=== PATIENT | female | born 1995 | race Caucasian/White ===

== ENCOUNTER → 2018-11-17 22:34 | Observation (INO) ==
--- NOTE | 2018-11-17 22:28 | OB/GYN Progress Note ---
Date of Encounter: 11/17/18 Time of Encounter: 22:25 - Assessment and Plan (1) 36 weeks gestation of Current Visit: Yes Status: Acute Reactive NST with audible movement Discharge home with labor precautions Follow up in office with routine care and PRN POC per consult with Dr Peña (2) NST (non-stress test) reactive Current Visit: Yes Status: Acute Subjective - Subjective Principal diagnosis: decreased movement Interval history: Ms Doyle is a at 36 weeks and 0 days that presents to labor and delivery with c/o contractions every 10 minutes and 4 movements in 1 hour. She states she attempted to lay on her side and drink something cold and sweet without success. She did have a BPP in the office today for an 12/11. She is scheduled on Saturday for a follow up . She denies any leaking of fluid, vaginal discharge, headaches, vision changes, and epigastric pain. She is seen by Dr Bland for her care. Antepartum ROS: contractions, no movement normal Objective - Vital Signs Vital Signs: Intake and Output 11/17/18 11/17/18 11/17/18 07:59 15:59 23:59 Other: Weight 79.4 kg Patient Weight 11/17/18 23:59 Weight 79.4 kg - Exam FHR: auscultation normal, category 1 FHR comments: NST baseline 140 with > 15 x 15 accels and moderate variability. Uterus palpated soft Abdomen: Present: normal appearance, soft, gravid Uterus: Present: normal. Absent: firm, tenderness Cervical dilation: 2 Cervix effacement: 80 station: +1
== END | disposition home or self-care (01) ==
LOC: 1NENULAB
PROVIDERS: ADMIT Advanced Practice Midwife; ATTEND Advanced Practice Midwife

== ENCOUNTER → 2018-11-23 22:35 | Observation (INO) ==
[2018-11-23 21:02] LABS: Bacteria,Urine Many per hpf (None-Few); Bilirubin,Urine Negative (Negative); Blood,Urine Negative (Negative); Clarity,Urine Cloudy (Clear); Color,Urine Yellow (Yellow); Glucose,Urine (UA) Normal (Normal); Hyaline Casts,Urine None Seen per lpf (None-Few); Ketones,Urine Negative (Negative); Leukocyte Esterase,Urine Moderate (Negative); Nitrite,Urine Negative (Negative); Protein,Urine 100 mg/dL (Neg-Trace); Specific Gravity,Urine 1.024 (1.010-1.025); Squamous Epithelial Cell,Urine Many per lpf (None-Few); Urobilinogen,Urine Normal (Normal); WBC,Urine 30-50 per hpf (0-3)
[2018-11-23 21:12] LABS: Amphetamine Screen,Urine Negative ng/mL (Cutoff=1000); Barbiturate Screen,Urine Negative ng/mL (Cutoff=200); Benzodiazepines Screen,Urine Negative ng/mL (Cutoff=200); Cannabinoid Screen,Urine Negative ng/mL (Cutoff = 50); Cocaine Screen,Urine Negative ng/mL (Cutoff= 300); Opiate Screen,Urine Negative ng/mL (Cutoff=300); Phencyclidine Screen,Urine Negative ng/mL (Cutoff=25)
[2018-11-23 21:16] LABS: RBC,Urine 0-3 per hpf (0-3)
--- NOTE | 2018-11-23 21:24 | OB/GYN Progress Note ---
Date of Encounter: 11/23/18 Time of Encounter: 21:21 - Assessment and Plan (1) Headache in Current Visit: Yes Status: Acute Will try fioricet for headache relief PIH labs pending Dr. Franklin aware of patient complaints and assessment Qualifiers: Trimester: third trimester Qualified Code(s): O26.893 - Other specified related conditions, third trimester; R51 - Headache (2) NST (non-stress test) reactive Current Visit: No Status: Acute FHR 135 bpm moderate variability +15x15 accels no decels noted. Cat. 1 tracing Subjective - Subjective Principal diagnosis: Decreased FM, Headache and cramping Interval history: Patient is a 22 y/o at 36w6d presents to labor and delivery with complaints of decreased movement since she woke up this morning. Patient has felt baby move since getting to labor and delivery. Patient also reports a headache that started yesterday and has had no relief with Tylenol. Patient reports the pain to be an 8/10 on from the top of her head to the crown. Patient denies visual disturbances or epigastric pain. She does report cramping with vaginal pressure. She denies LOF or VB. Patient reports she is a GDM on metformin 500mg po daily. She receives care with Dr. Ceja. Antepartum ROS: contractions, no loss of fluid, no vaginal bleeding Objective - Vital Signs Vital Signs: Intake and Output 11/23/18 11/23/18 11/23/18 07:59 15:59 23:59 Other: Weight 79.742 kg Patient Weight 11/23/18 23:59 Weight 79.742 kg - Exam FHR: auscultation normal, category 1 FHR comments: FHR baseline 135 bpm moderate variability +15x15 accels no decels noted. Irregular contractions Cat. 1 tracing. Auscultation: bilateral: normal Abdomen: Present: normal appearance, soft, gravid Uterus: Present: normal Cervical dilation: 2 Cervix effacement: 80 station: -1 Comments: DTRs 2+ no clonus, 1+ edema bilateral lower extremities. - Labs Labs: Abnormal lab results Urine Clarity Cloudy (Clear) A 11/23/18 20:37 Urine Protein 100 mg/dL (Neg-Trace) H 11/23/18 20:37 Ur Leukocyte Esterase Moderate (Negative) H 11/23/18 20:37 Urine Microscopic WBC 30-50 per hpf (0-3) H 11/23/18 20:37 Ur Squamous Epith Cells Many per lpf (None-Few) H 11/23/18 20:37 Urine Bacteria Many per hpf (None-Few) H 11/23/18 20:37 Ur Culture Indicated? YES (NO) A 11/23/18 20:37
[2018-11-23 21:34] LABS: Basophils % 0.1 %; Eosinophils # 0.1 K/mcL (0.0-0.6); Eosinophils % 1.2 %; Hematocrit 31.3 % (35.3-44.9); Hemoglobin 10.2 g/dL (11.5-15.4); Immature Granulocytes % 0.5 % (0-4); Lymphocytes # 1.9 K/mcL (0.6-4.6); Lymphocytes % 21.2 %; Mean Corpuscular HGB Conc 32.6 g/dL (31.6-35.5); Mean Corpuscular Hemoglobin 29.1 pg (28.0-33.3); Mean Corpuscular Volume 89.4 fL (83.0-100.0); Mean Platelet Volume 10.7 fL (9.4-12.4); Monocytes # 0.5 K/mcL (0.0-1.3); Monocytes % 5.9 %; Neutrophils # 6.5 K/mcL (1.6-8.9); Platelet Count 170 K/mcL (140-400); Red Cell Distribution Width 13.7 % (11.5-14.5); Segmented Neutrophils % 71.1 %; White Blood Count 9.2 K/mcL (4.3-11.1)
[2018-11-23 21:46] LABS: Protein/Creatinine Ratio,Urine 0.58 mg/mg (0.00-0.20)
[2018-11-23 21:53] LABS: Alanine Aminotransferase 25 Units/L (7-52); Aspartate Amino Transferase 41 Units/L (13-39); BUN/Creatinine Ratio 22 (6-26); Blood Urea Nitrogen 14 mg/dL (6-20); Lactate Dehydrogenase 182 Units/L (140-271); Uric Acid 5.7 mg/dL (2.3-7.6); eGFR For African Americans > 60 (> 60); eGFR For Non-African Americans > 60 (> 60)
--- NOTE | 2018-11-23 22:32 | Event Note ---
Date of Encounter: 11/23/18 Time of Encounter: 22:31 Discussed BPs, labs and assessment with Dr. Franklin. Will discharge patient home. Patient to follow up with Dr. Ceja as scheduled.
[~2018-11-23 22:35] MED LIST: Acetaminophen/Butalbital/CaffeineTABLET PO STA
== END | disposition home or self-care (01) ==
LOC: 1NENULAB
PROVIDERS: ADMIT Advanced Practice Midwife; ATTEND Advanced Practice Midwife

== ENCOUNTER → 2018-11-30 06:26 | Observation (INO) ==
--- NOTE | 2018-11-29 22:47 | OB/GYN Progress Note ---
Date of Encounter: 11/29/18 Time of Encounter: 22:43 - Assessment and Plan (1) 37 weeks gestation of Current Visit: Yes Status: Acute NST reactive Will monitor until morning for changes in contraction pattern and to repeat cervical exam. GBS negative DIscharge home in morning vs admit for ruptured membranes POC per consult with Dr Franklin. (2) Vaginal discharge during in third trimester Current Visit: Yes Status: Acute (3) NST (non-stress test) reactive Current Visit: Yes Status: Acute Subjective - Subjective Principal diagnosis: Leaking fluid Interval history: Ms Doyle is a 22 year old at 37 weeks and 5 days that presents to triage with c/o leaking clear fluid throughout the day without pain. She states she began having cramping about 2 hours ago. She denies intercourse or submerging in water in the past 48 hours. She states positive movement. She denies headaches, vision changes, epigastric pain, and vaginal bleeding. She is seen by Dr Bland for care. She does have GDM and is taking metformin 500mg BID. Antepartum ROS: loss of fluid, movement normal Objective - Vital Signs Vital Signs: Intake and Output 11/29/18 11/29/18 11/29/18 07:59 15:59 23:59 Other: Weight 81 kg Patient Weight 11/29/18 23:59 Weight 81 kg - Exam FHR: auscultation normal, category 1 FHR comments: Cat 1 tracing Baseline 135 moderate variability with 15 x 15 accels and no decels Contractions are irregular; palpate mild Auscultation: bilateral: normal Abdomen: Present: normal appearance, soft, gravid. Absent: tenderness Uterus: Present: normal. Absent: firm, tenderness Cervical dilation: 4 Cervix effacement: 80 station: -1 Comments: SSE - pooling positive, blood tinge noted to fluid in posterior fornix SVE - membranes palpable on presenting part; palpates vertex and well applied to cervix Fern negative nitrazine negative on perineum; Not done on pooling fluid due to blood tinge.
[~2018-11-30 06:26] MED LIST changes: +Acetaminophen 325 MG TABLET PO ONE; -Acetaminophen/Butalbital/CaffeineTABLET PO STA
== END | disposition home or self-care (01) ==
LOC: 1NENULAB
PROVIDERS: ADMIT Advanced Practice Midwife; ATTEND Advanced Practice Midwife

== ENCOUNTER 2018-11-30 12:56 | Inpatient (IN) ==
--- NOTE | 2018-11-30 12:47 | OB/GYN History & Physical ---
Date of Encounter: 11/30/18 Time of Encounter: 12:39 Assessment and Plan (1) SROM (spontaneous rupture of membranes) Current visit: Yes Status: Acute Admit to labor and delivery Nubain and epidural as desired Cytotec 50 g by mouth then will transition to Pitocin Frequent repositioning Anticipate (2) White classification A2 gestational diabetes mellitus (GDM) Current visit: Yes Status: Acute (3) 37 weeks gestation of Current visit: Yes Status: Acute History of Present Illness Chief complaint: spotting and leaking of fluid HPI: Ms. Doyle is a 22 year old female 37+5 weeks gestation cents to triage with complaints of spotting and leaking of fluid. Patient was in triage last night for leaking of fluid, sterile speculum exam showed no fluid, went home and soaked a. Pad came back. Sterile speculum exam shows clear fluid, ferning positive. Reports good movement care with Dr. Bland course complicated with A2 gestational diabetes on metformin 500 twice a day. Grade 3 placenta noted on last ultrasound. Estimated weight 6 lbs. 13 oz. Labs: A+, rubella and varicella immune, GBS negative, all other serologies negative Past Med Surg Social Fam HX - Past Medical History Medical history: no medical history Additional medical history: [place] Psychiatric history: no psych history - Past Surgical History Additional surgical history: T&A - Social History Smoking Status: Never smoker Smokeless Tobacco Status: No Alcohol use: none Drug use: none - Family History Mother Living Status: Still Living Hx Family Cardiac Disorders: No Hx Family Respiratory Disorders: No Hx Family Cancer: No Hx Family GI Disorders: No Hx Family Endocrine Disorder: Yes (dm) Hx Family Neuromuscular Disorders: No Hx Family Neurologic Disorders: No Hx Family HEENT Disorders: No Hx Family Autoimmune Disorders: No Obstetrical History - Pregnancies : 1 Para: 0 Term: 0 : 0 Ab's: 0 Livin Medications and Allergies Ferrous Sulfate [Iron] 1 tab PO BID 11/23/18 [History] Vit #108/Iron/FA [ One Tablet] 1 tab PO DAILY 11/23/18 [History] metFORMIN [Glucophage] 1 tab PO BID 11/23/18 [History] Allergy/AdvReac Type Severity Reaction Status Date / Time No Known Allergies Allergy Verified 11/23/18 20:28 Exam - Constitutional Constitutional: well developed, well nourished, no acute distress, average body habitus - Neck Neck exam: full ROM - Lungs Respiratory exam: CTAB - Cardiovascular Cardiovascular exam: RRR - Abdomen Abdomen: Present: gravid, non tender - Extremities Extremities exam: normal capillary refill, normal inspection - Cervix Dilation: 4 Effacement: 80 Station: -2 Results All other labs normal.
[~2018-11-30 12:56] MED LIST changes: +*HR* Nalbuphine 10 MG/ML AMPUL IVP PRN; -Acetaminophen 325 MG TABLET PO ONE; +Famotidine 20 MG/2 ML VIAL IVP PRN; +Lidocaine 1% 20 ML MDV INFILT PRN; +Metoclopramide 10 MG/2 ML VIAL IVP PRN; +Naloxone 0.4 MG/ML INJ IVP PRN; +Ondansetron 4 MG/2 ML VIAL IVP PRN; +miSOPROStol 25 MCG TABLET PO PRN
[2018-11-30 13:40] LABS: Basophils % 0.3 %; Eosinophils # 0.1 K/mcL (0.0-0.6); Eosinophils % 1.2 %; Hematocrit 31.8 % (35.3-44.9); Hemoglobin 10.6 g/dL (11.5-15.4); Immature Granulocytes % 0.6 % (0-4); Lymphocytes # 1.8 K/mcL (0.6-4.6); Lymphocytes % 18.3 %; Mean Corpuscular HGB Conc 33.3 g/dL (31.6-35.5); Mean Corpuscular Volume 87.1 fL (83.0-100.0); Mean Platelet Volume 10.5 fL (9.4-12.4); Monocytes # 0.6 K/mcL (0.0-1.3); Neutrophils # 7.2 K/mcL (1.6-8.9); Platelet Count 177 K/mcL (140-400); Red Blood Count 3.65 M/mcL (3.82-4.97); Segmented Neutrophils % 73.6 %; White Blood Count 9.8 K/mcL (4.3-11.1)
[2018-11-30] MEDS: Ringers Solution, Lactated 1,000 ML IVC SCH ×2 (16:17→17:15)
[2018-11-30] MEDS ORDERED: Epidural Premix (fent/bupiv) 110 ML EP ONE (16:39)
[2018-11-30] MEDS ORDERED: *HR* FentaNYL (PF) 100 MCG/2 ML VIAL ONE (16:40)
[2018-11-30] MEDS ORDERED: Ropivacaine/PF 0.2% 20 ML VIAL ONE (16:40)
--- NOTE | 2018-11-30 17:21 | Anesthesia Evaluation PreOp ---
Date of Encounter: 11/30/18 Time of Encounter: 16:40 - Past History Cardiac History: Denies any Significant Hx Pulmonary History: Denies Any Significant HX MAILING JOGGER History: Denies Any Significant HX Other Medical History: Diabetes Type II (gestational) Anesthesia History: No Prior Anesthetic Complications, Past Anesthesia : Yes (, 37.6 weeks) Alcohol Use: none Drug use: none Medications and Allergies Ferrous Sulfate [Iron] 1 tab PO BID 11/23/18 [History] Vit #108/Iron/FA [ One Tablet] 1 tab PO DAILY 11/23/18 [History] metFORMIN [Glucophage] 1 tab PO BID 11/23/18 [History] Allergy/AdvReac Type Severity Reaction Status Date / Time No Known Allergies Allergy Verified 11/23/18 20:28 - Meds/Allergy Pre-op Review Medications Reviewed: Yes Allergies Reviewed: Yes Beta Blockers on Current Med List: No Anesthesia Results - Labs 11/30/18 13:20 Anesthesia Exam O2 Sat Height 1.68 m Weight 81 kg Height: 66 Weight: 81 - HEENT Pupil (Motor): Pupils equal Mallampati: II Teeth: Normal Oral Opening: Greater than 3 - MAILING JOGGER LOC: Oriented MAILING JOGGER Motor: Normal RUE, Normal LUE, Normal RLE, Normal LLE, Normal Face MAILING JOGGER Sensory: Normal: RUE, LUE, RLE, LLE, Face - Cardiac Rhythm: Regular Murmur: None JVD: No Carotid Bruit: No - Pulmonary Breath Sounds: bilateral Clear Respiratory Effort: Symmetrical Anesthesia Assess/Plan ASA Score: 2 Level of consciousness: Cooperative Anesthetic Plan: Epidural
--- NOTE | 2018-11-30 17:24 | Anesthesia Procedures ---
Date of Encounter: 11/30/18 Time of Encounter: 16:40 (procedure end time 1723) Procedures: Anesthesia - Epidural/Spinal Patient ID/Chart reviewed: Yes Patient examined: Yes OB Eval: Gestational age: 37.6 OB Eval: : 1 OB Eval: Hx Para: 0 OB Eval: Dilated at (cm): 4 OB Eval: Contractions: Non-stressed pattern Consent Obtained: Yes Supplemental Oxygen: None/Room Air Site Prep: Aseptic Technique Patient position: upright Local Anesthetic: Lidocaine 1% Amount of Local Anesthetic used: 3 Touhy Needle Gauge: 18 Touhy Needle Depth (cm): 6 Catheter Depth at Skin (cm): 12 Test Dose (1.5% Lido + Epi): Volume given (mls): 3 Test Dose Result: Negative Loading Dose: Fentanyl (mcg): 100 Loading Dose: Other: 6ml 0.2% ropivicaine Loading Dose Administered: Thru Touhy Needle Infusion Med: 0.125% Bupivacaine w/ 2 mcg/ml Fentanyl Infusion Rate (mls/hr): [address]: Tegaderm Interspace Used: L4-L5 Loss of Resistance (RAMIN): Yes Blood: No CSF: No Paresthesia: No Procedure: Strict asepsis, one attempt without any redirections. Good RAMIN, no parasthesias, no heme, no CSF. See nursing notes for VS
[2018-11-30] MEDS ORDERED: Epidural Premix (fent/bupiv) 110 ML EP SCH (17:30)
--- NOTE | 2018-11-30 18:45 | OB Labor Progress Note ---
Date of Encounter: 11/30/18 Time of Encounter: 18:42 Labor Progress Note - Subjective Subjective: comfortable wiht epidural - Cervix Cervix: 10 - Heart Tones Heart Tones: 115/minimal/+accels/-decels - [place]: 1-3 - Plan Physician notified: No Plan: Continue current mnagement position with peanut ball start pushing when feels pressure
[2018-11-30] MEDS ORDERED: Oxytocin 20 units/ LR 1000 mL 20 UNIT/1,000 ML BAG IVC ONE (22:14)
--- NOTE | 2018-12-01 00:16 | OB/GYN Procedure Note ---
Delivery - Delivery Date: 12/01/18 Provider: Ree Michel Delivery induction: none Delivery augmentation: cytotec Delivery monitor: external FHT, external uterine Anesthesia: epidural Quantitated Blood Loss: 500 - (s) Infant A Infant Delivery Date: 11/30/18 Infant Delivery Time: 23:48 Presentation: vertex Position: OA Route of delivery: Gender: Male Viability: Viable at 1 minute: 8 at 5 mins: 9 Shoulder Dystocia: not encountered Specimens collected: cord blood Placenta: spontaneous Cord: 3 umbilical vessels - Repair Episiotomy: none Laceration Description: Perineal - 2nd Degree, Labial (left labial tear, right labial hematoma) - Complications Delivery complications: none Delivery comments: Spontaneous rupture membranes, augmentation with Cytotec. Progressed to complete. Maternal bearing down efforts to of liveborn male. Vertex delivered OA, shoulders and body easily followed. No nuchal cord or shoulder dystocia encountered. Vigorous infant placed on maternal abdomen for drying and stimulation. APGARS 8/9 . Placenta delivered spontaneously ([place]) complete and intact upon inspection. Fundus massaged until firm and Pitocin started per policy. Second degree perineal laceration repaired with 3-0 Monocryl. First degree lower perineal laceration left hemostatic and unrepaired. Left labial aspiration left hemostatic and unrepaired. Small hematoma noted to inner right labia. EBL 500 - Disposition Mom disposition: stable in LDR disposition: stable in LDR
[2018-12-01] MEDS ORDERED: Oxytocin 20 units/ LR 1000 mL 20 UNIT/1,000 ML BAG IVC ONE (01:25)
[2018-12-01] MEDS ORDERED: Benzocaine/Menthol 56 GM AEROSOL SPRAY TP PRN (02:59)
[2018-12-01] MEDS ORDERED: Lanolin 7 G OINT...G. TP PRN (02:59)
[2018-12-01] MEDS ORDERED: Acetaminophen 325 MG TABLET PO PRN (02:59)
[2018-12-01] MEDS ORDERED: Oxytocin 20 units/ LR 1000 mL 20 UNIT/1,000 ML BAG IVC SCH (02:59)
[2018-12-01 05:45] LABS: Basophils % 0.1 %; Eosinophils % 0.1 %; Hematocrit 29.4 % (35.3-44.9); Hemoglobin 9.6 g/dL (11.5-15.4); Immature Granulocytes % 0.9 % (0-4); Lymphocytes # 1.9 K/mcL (0.6-4.6); Lymphocytes % 12.4 %; Mean Corpuscular HGB Conc 32.7 g/dL (31.6-35.5); Mean Corpuscular Hemoglobin 28.7 pg (28.0-33.3); Mean Corpuscular Volume 87.8 fL (83.0-100.0); Mean Platelet Volume 11.2 fL (9.4-12.4); Monocytes % 5.6 %; Neutrophils # 12.2 K/mcL (1.6-8.9); Platelet Count 164 K/mcL (140-400); Red Blood Count 3.35 M/mcL (3.82-4.97); Red Cell Distribution Width 14.1 % (11.5-14.5); Segmented Neutrophils % 80.9 %
[2018-12-01 05:47] LABS: Monocytes # 0.9 K/mcL (0.0-1.3); White Blood Count 15.1 K/mcL (4.3-11.1)
[2018-12-01] MEDS: Ibuprofen 600 MG TABLET PO PRN ×2 (07:57→20:46)
[2018-12-01] MEDS ORDERED: Prenatal Vit/FA 1 EACH TABLET PO SCH (09:00)
--- NOTE | 2018-12-01 12:35 | Discharge Summary ---
Date of Encounter: 12/01/18 Time of Encounter: 12:32 - Discharge Diagnosis (1) Vaginal delivery Priority: Primary Status: Acute Comments: Patient meeting day one milestones Pain well controlled Voiding without difficulty Lochia moderate No bowel movement yet Anticipate discharge after midnight (2) Breast feeding status of mother Priority: Secondary Status: Acute Comments: Support as needed. Patient states she has a breast pump at home (3) Hematoma of labia majora Priority: Secondary Status: Acute Comments: Unchanged from previous assessment, ice packs and NSAIDs as needed to limit discomfort. (4) Second degree perineal laceration Priority: Secondary Status: Acute Comments: Motrin, dermaplast, and ice packs as needed for discomfort. (5) Acute blood loss anemia Priority: Secondary Status: Acute Comments: Continue daily iron at discharge. - Discharge Medications Prescriptions: New Ferrous Sulfate 325 mg PO DAILY #30 tablet Acetaminophen [Tylenol] 650 mg PO Q6HR PRN tablet PRN Reason: Mild Pain Ibuprofen [Motrin] 600 mg PO Q6HR PRN #60 tablet PRN Reason: Cramping Benzocaine/Menthol [place] [Dermoplast [place]] 1 appl TP QID PRN aerosol PRN Reason: See Comments Docusate [Colace] 100 mg PO BID capsule Lanolin [Lansinoh] 1 appl TP QID PRN oint...g. PRN Reason: Continued Vit #108/Iron/FA [ One Tablet] 1 tab PO DAILY Discontinued Ferrous Sulfate [Iron] 1 tab PO BID metFORMIN [Glucophage] 1 tab PO BID Home Medications: Vit #108/Iron/FA [ One Tablet] 1 tab PO DAILY 11/23/18 [History] Acetaminophen [Tylenol] 650 mg PO Q6HR PRN tablet 12/01/18 [Rx] Benzocaine/Menthol [place] [Dermoplast [place]] 1 appl TP QID PRN aerosol 12/01/18 [Rx] Docusate [Colace] 100 mg PO BID capsule 12/01/18 [Rx] Ferrous Sulfate 325 mg PO DAILY #30 tablet 12/01/18 [Rx] Ibuprofen [Motrin] 600 mg PO Q6HR PRN #60 tablet 12/01/18 [Rx] Lanolin [Lansinoh] 1 appl TP QID PRN oint...g. 12/01/18 [Rx] Allergies/Adverse Reactions: Allergy/AdvReac Type Severity Reaction Status Date / Time No Known Allergies Allergy Verified 11/23/18 20:28 Data Procedures and tests throughout hospitalization: Laboratory Tests 11/30/18 12/01/18 13:20 05:14 WBC 9.8 15.1 H D RBC 3.65 L 3.35 L Hgb 10.6 L 9.6 L Hct 31.8 L 29.4 L MCV 87.1 87.8 MCH 29.0 28.7 MCHC 33.3 32.7 RDW 14.0 14.1 Plt Count 177 164 MPV 10.5 11.2 Immature Gran % 0.6 0.9 Seg Neutrophils % 73.6 80.9 Lymphocytes % 18.3 12.4 Monocytes % 6.0 5.6 Eosinophils % 1.2 0.1 Basophils % 0.3 0.1 Neutrophils # 7.2 12.2 H Lymphocytes # 1.8 1.9 Monocytes # 0.6 0.9 Eosinophils # 0.1 0.0 Basophils # 0.0 0.0 Labs on day of discharge: Labs from last 24 hours 12/01/18 11/30/18 05:14 13:20 WBC 15.1 H D 9.8 RBC 3.35 L 3.65 L Hgb 9.6 L 10.6 L Hct 29.4 L 31.8 L MCV 87.8 87.1 MCH 28.7 29.0 MCHC 32.7 33.3 RDW 14.1 14.0 Plt Count 164 177 MPV 11.2 10.5 Immature Gran % 0.9 0.6 Seg Neutrophils % 80.9 73.6 Lymphocytes % 12.4 18.3 Monocytes % 5.6 6.0 Eosinophils % 0.1 1.2 Basophils % 0.1 0.3 Neutrophils # 12.2 H 7.2 Lymphocytes # 1.9 1.8 Monocytes # 0.9 0.6 Eosinophils # 0.0 0.1 Basophils # 0.0 0.0 Date of admission: 11/30/18 12:57 Consults: 12/01/18 02:59 Consult to [facility]unch [facility] Hand [CONS] Routine Comment: Vaginal delivery, consult needed Discharging clinician: Ivelisse Jones Anticipated date of discharge: 12/01/18 - Patient Status Disposition: Home, Self-Care Condition: Good Functional capacity at discharge: independent ambulation Overall status at discharge: patient is progressing back to baseline - Discharge Instructions - Diet and Activity Activity: resume usual activities as tolerated Diet: regular diet Hospital Course Reason for admission: active labor Delivery: Episiotomy: none Laceration: 2nd degree, other (Labial Laceration) Other procedures: none complications: hematoma, perineal laceration Discharge diagnosis: IUP at term delivered [place] baby: male Hospital course: - Delivery Date: 12/01/18 Provider: Ree Michel Delivery induction: none Delivery augmentation: cytotec Delivery monitor: external FHT, external uterine Anesthesia: epidural Quantitated Blood Loss: 500 - (s) Infant A Delivery Date: 11/30/18 Infant Delivery Time: 23:48 Presentation: vertex Position: OA Route of delivery: Gender: Male Viability: Viable at 1 minute: 8 at 5 mins: 9 Shoulder Dystocia: not encountered Specimens collected: cord blood Placenta: spontaneous Cord: 3 umbilical vessels - Repair Episiotomy: none Laceration Description: Perineal - 2nd Degree, Labial (left labial tear, right labial hematoma) - Complications Delivery complications: none Delivery comments: Spontaneous rupture membranes, augmentation with Cytotec. Progressed to complete. Maternal bearing down efforts to of liveborn male. Vertex delivered OA, shoulders and body easily followed. No nuchal cord or shoulder dystocia encountered. Vigorous infant placed on maternal abdomen for drying and stimulation. APGARS 8/9 . Placenta delivered spontaneously ([place]) complete and intact upon inspection. Fundus massaged until firm and Pitocin started per policy. Second degree perineal laceration repaired with 3-0 Monocryl. First degree lower perineal laceration left hemostatic and unrepaired. Left labial aspiration left hemostatic and unrepaired. Small hematoma noted to inner right labia. EBL 500 - Disposition Mom disposition: stable in LDR [place] disposition: stable in LDR Time Attestation: Total time spent providing and/or coordinating discharge services: Time Spent: Less than 30 minutes Exam - Constitutional Vitals: Temp Pulse Resp BP Pulse Ox 97.9 F 70 16 131/85 98 12/01/18 08:43 12/01/18 08:43 12/01/18 08:43 12/01/18 08:43 12/01/18 05:27 General appearance IM: A&O X 3, no acute distress - Respiratory Respiratory exam: Present: CTAB. Absent: respiratory distress - Cardiovascular Cardiovascular exam IM: Present: RRR, +S1, +S2. Absent: irregular rhythm - GI/Abdominal GI/Abdominal exam IM: hypoactive bowel sounds - Rectal Rectal exam: deferred - External exam: normal external exam Uterine Tone: Firm Uterus Position: At Umbilicus, Right of Midline - Extremities Exam Extremities exam IM: Present: full ROM, normal capillary refill, normal in spection, radial pulses palpable and symmetrical. Absent: calf tenderness - Neurological Exam Neurological exam: alert, oriented X3
[2018-12-01 16:28] VITALS: BP 129/83
== END 2018-12-01 20:55 | disposition home or self-care (01) | DRG 806 ==
LOC: 1NENULAB → 1NENUOBS 12-01 02:58
PROVIDERS: ADMIT Obstetrics & Gynecology; ATTEND Obstetrics & Gynecology

== ENCOUNTER 2020-06-28 06:43 | Observation (INO) ==
[2020-06-28] MEDS ORDERED: Ondansetron 4 MG/2 ML VIAL IVP ONE ×2 (07:07→08:24)
[2020-06-28] MEDS ORDERED: 0.9 % Sodium Chloride 1,000 ML IVC ONE ×3 (07:07→10:22)
[2020-06-28 07:30] LABS: Bacteria,Urine Few per hpf (None-Few); Bilirubin,Urine Negative (Negative); Blood,Urine Trace (Negative); Clarity,Urine Turbid (Clear); Color,Urine Yellow (Yellow); Glucose,Urine (UA) Normal (Normal); Hyaline Casts,Urine Moderate per lpf (None Seen); Ketones,Urine Negative (Negative); Leukocyte Esterase,Urine Moderate (Negative); Mucus,Urine Few per lpf (None-Few); Nitrite,Urine Negative (Negative); Protein,Urine 70 mg/dL (Neg-Trace); Specific Gravity,Urine > 1.030 (1.010-1.025); Squamous Epithelial Cell,Urine Few per hpf (None-Few); Urobilinogen,Urine Normal (Normal)
[2020-06-28 07:42] LABS: BUN/Creatinine Ratio 26 (6-26); Blood Urea Nitrogen 14 mg/dL (6-20); Calcium 9.1 mg/dL (8.6-10.3); Carbon Dioxide 23 mEq/L (23-29); Chloride 103 mEq/L (98-107); Glucose 119 mg/dL (70-105); Osmolality,Calculated 280 (280-300); Potassium 3.5 mEq/L (3.5-5.1); Sodium 134 mEq/L (136-145); eGFR For African Americans > 60 (> 60); eGFR For Non-African Americans > 60 (> 60)
[2020-06-28] MEDS ORDERED: cefTRIAXone 1,000 MG in 0.9 % Sodium Chloride Mini Bag 100 ML IVPB ONE (10:22)
[2020-06-28] MEDS ORDERED: Ondansetron 4 MG/2 ML VIAL IVP PRN (12:08)
[2020-06-28] MEDS ORDERED: Naloxone 0.4 MG/ML INJ IVP PRN (12:08)
[2020-06-28] MEDS ORDERED: Acetaminophen 325 MG TABLET PO PRN (12:08)
[2020-06-28] MEDS: Ringers Solution, Lactated 1,000 ML IVC SCH (15:01)
[2020-06-28] MEDS ORDERED: Prochlorperazine 10 MG/2 ML VIAL IVP PRN (15:26)
[2020-06-29 04:36] LABS: Basophils % 0.2 %; Eosinophils # 0.1 K/mcL (0.0-0.6); Hematocrit 31.9 % (35.3-44.9); Hemoglobin 10.7 g/dL (11.5-15.4); Immature Granulocytes % 0.4 % (0-4); Lymphocytes # 0.8 K/mcL (0.6-4.6); Lymphocytes % 16.9 %; Mean Corpuscular HGB Conc 33.5 g/dL (31.6-35.5); Mean Corpuscular Volume 89.4 fL (83.0-100.0); Mean Platelet Volume 9.8 fL (9.4-12.4); Monocytes # 0.3 K/mcL (0.0-1.3); Monocytes % 6.3 %; Neutrophils # 3.6 K/mcL (1.6-8.9); Platelet Count 189 K/mcL (140-400); Red Blood Count 3.57 M/mcL (3.82-4.97); Red Cell Distribution Width 13.9 % (11.5-14.5); Segmented Neutrophils % 75.2 %; White Blood Count 4.8 K/mcL (4.3-11.1)
[2020-06-29 04:58] LABS: BUN/Creatinine Ratio 20 (6-26); Blood Urea Nitrogen 9 mg/dL (6-20); Calcium 8.2 mg/dL (8.6-10.3); Carbon Dioxide 22 mEq/L (23-29); Chloride 106 mEq/L (98-107); Glucose 95 mg/dL (70-105); Magnesium 1.6 mg/dL (1.6-2.6); Osmolality,Calculated 276 (280-300); Phosphorous 2.9 mg/dL (2.7-4.5); Potassium 3.2 mEq/L (3.5-5.1); Sodium 134 mEq/L (136-145); eGFR For African Americans > 60 (> 60); eGFR For Non-African Americans > 60 (> 60)
[2020-06-29] MEDS: Ringers Solution, Lactated 1,000 ML IVC SCH (05:03)
[2020-06-29] MEDS ORDERED: Pyridoxine (B-6) 50 MG TABLET PO SCH (09:00)
[2020-06-29] MEDS ORDERED: cefTRIAXone 1,000 MG in Water for inj. (sterile) 10 ML IVP SCH (09:00)
[2020-06-29 14:35] VITALS: BP 102/68
== END 2020-06-29 18:18 | disposition home or self-care (01) ==
LOC: EMEROOARM 06:43 → 3ANU 06:43 → SUATTDRO 12:50 → 3ANU 14:21
PROVIDERS: ADMIT Internal Medicine; ATTEND Pharmacist

== ENCOUNTER → 2021-01-01 19:17 | Observation (INO) ==
[2021-01-01 19:22] LABS: Amorphous Sediment,Urine Few per hpf (None-Few); Bacteria,Urine Few per hpf (None-Few); Bilirubin,Urine Negative (Negative); Blood,Urine Negative (Negative); Clarity,Urine Turbid (Clear); Color,Urine Light-Yellow (Yellow); Glucose,Urine (UA) Normal (Normal); Hyaline Casts,Urine Few per lpf (None Seen); Ketones,Urine Negative (Negative); Leukocyte Esterase,Urine Large (Negative); Mucus,Urine Few per lpf (None-Few); Nitrite,Urine Negative (Negative); Protein,Urine Negative (Neg-Trace); RBC,Urine 0-3 per hpf (0-3); Specific Gravity,Urine 1.011 (1.010-1.025); Squamous Epithelial Cell,Urine Few per hpf (None-Few); Urobilinogen,Urine Normal (Normal)
== END | disposition home or self-care (01) ==
LOC: 1NENULAB
PROVIDERS: ADMIT Obstetrics & Gynecology; ATTEND Obstetrics & Gynecology